=== PATIENT | female | born 1950 | race Caucasian/White ===

== ENCOUNTER 2017-08-03 06:40 | Observation (INO) | payer MEDICARE, OTHER ==
[2017-07-30 14:07] VITALS: BMI 38.0
[~2017-08-03 06:40] MED LIST: ALPRAZolam 0.25 MG TAB PO PRN; ASPIRIN 325 MG TAB PO ONE; ATORVASTATIN 80 MG TAB PO ONE; SODIUM CHLORIDE 0.9% 1,000 ML in EMPTY BAG 1 BAG IV ONE
[2017-08-03 10:45] LABS: Basophils % (A) 0 %; Eosinophils # (A) 0.3 k/uL (0-0.7); Eosinophils % (A) 5 %; HGB 13.5 gm/dL (11.4-16.0); Hypochromasia Slight; Lymphocytes # (A) 1.4 k/uL (1.0-4.8); Lymphocytes % (A) 23 %; MCH 26.5 pg (25.0-35.0); MCHC 30.7 g/dL (31.0-37.0); MCV 86.2 fL (80.0-100.0); Mean Platelet Volume 7.1; Monocytes # (A) 0.4 k/uL (0-1.0); Monocytes % (A) 7 %; Neutrophils # (A) 3.7 k/uL (1.3-7.7); Neutrophils % (A) 62 %; Platelet Count 283 k/uL (150-450); RDW 14.9 % (11.5-15.5); WBC 5.9 k/uL (3.8-10.6)
[2017-08-03 10:53] LABS: Calcium 9.2 mg/dL (8.4-10.2); Potassium 4.7 mmol/L (3.5-5.1)
[2017-08-03] MEDS ORDERED: IV FLUID CONTINUATION 500 ML IV ONE (11:54)
[2017-08-03] MEDS ORDERED: HEPARIN SODIUM 1,000 UN/ML (10ML VL) ONE (12:05)
[2017-08-03] MEDS ORDERED: MIDAZOLAM 2 MG/2 ML VIAL ONE (12:05)
[2017-08-03] MEDS ORDERED: VERAPAMIL 2.5 MG/ML 2 ML AMP ONE (12:05)
[2017-08-03] MEDS ORDERED: MIDAZOLAM 2 MG/2 ML VIAL IV ONE (12:20)
[2017-08-03] MEDS ORDERED: LIDOCAINE 1% INJ 10MG/ML (20 ML MDV) SQ ONE (12:30)
[2017-08-03] MEDS ORDERED: VERAPAMIL SYRINGE (5 MG/10 ML) INTRAARTER ONE (12:33)
[2017-08-03] MEDS ORDERED: HEPARIN SODIUM 1,000 UN/ML (10ML VL) IV ONE (12:35)
[2017-08-03] MEDS ORDERED: NITROGLYCERIN 1000MCG/10ML SYRINGE INTRACORON ONE (12:39)
[2017-08-03] MEDS ORDERED: IOPAMIDOL-370 125ML BTL INJ ONE (12:44)
[2017-08-03] MEDS ORDERED: RX INFO: IV CONTRAST WAS GIVEN 1 EACH MISC MISCELLANE PRN (12:48)
[2017-08-03] MEDS ORDERED: SODIUM CHLORIDE 0.9% 1,000 ML IV SCH (13:00)
[2017-08-03 13:16] VITALS: TEMP 97.7
[2017-08-03 14:26] VITALS: RESP 18
[2017-08-03 14:59] VITALS: BP 125/70; PULSE 61
--- NOTE | 2017-08-03 16:27 | CC ---
CARDIAC CATHETERIZATION REPORT DATE OF SERVICE: August 03, 2017 PERFORMING PHYSICIAN: Lalit Luther MD, department store manager. PROCEDURE PERFORMED: 1. Selective right and left coronary angiogram. 2. Left heart catheterization. INDICATION: This is a pleasant 66-year-old female patient who is known to have coronary artery disease and prior stenting of the RCA in the setting of acute inferior ST- elevation myocardial infarction complicated by cardiogenic shock, was experiencing lately intermittent episodes of chest discomfort described as a burning in the chest. The discomfort was concerning for angina. She at that time where she underwent her RCA stenting, she was found to have intermediate to severe disease involving the LAD. APPROACH: Right radial artery. COMPLICATIONS: None. LEVEL OF SEDATION: Moderate with sedation length of 15 minutes. PROCEDURE DESCRIPTION: After obtaining an informed consent, the patient was brought to the cardiac cathode builder. The right radial artery was cannulated using micropuncture technique and a micropuncture wire passed easily. Then I placed a 6-H[place] sheath in the right radial artery. After that, I did selective right and left coronary angiogram using JR4 and JL3.5 catheters. Left heart catheterization was performed using the JR4, which flipped into the LV across the aortic valve. Then I did pullback across aortic valve. The procedure was completed without any complication. SELECTIVE CORONARY ANGIOGRAM: 1. The RCA is a large caliber vessel and it is a dominant vessel. The RCA in the proximal to mid portion is stented and the stent is patent. The distal RCA is angiographically normal and bifurcates into PDA and PLV branches. Both are angiographically normal. 2. The left main is angiographically normal. It bifurcates into left circumflex and left anterior descending artery. 3. The left circumflex is a large caliber vessel and it is a nondominant vessel. The proximal circ has mild disease only. The mid left circumflex is normal and gives rise into a large OM branch which appeared to be angiographically normal and bifurcates into 2 subbranches both are angiographically normal. The circumflex after that continues in the AV groove as a medium caliber vessel. 4. Left anterior descending coronary artery: The proximal LAD appeared to have disease in the range of 40% The LAD as a matter of fact opened up after I gave the patient nitroglycerin IC. The mid LAD is tortuous. It does seems to be angiographically normal. The LAD after that tortuous area appeared to have a tubular lesion in the range of 60%. The LAD becomes a medium caliber vessel at that segment. At least the findings are the same as before. The LAD in the proximal to midportion gives rise into a medium-sized diagonal branch which has a tight lesion reach the ostial of the LAD. HEMODYNAMICS: The left ventricular end-diastolic pressure appeared to be in the range of 12 mmHg and no gradient was identified across the aortic valve. CONCLUSION: 1. Intermittent episodes of chest burning concerning for angina. 2. Patent stent in the RCA. 3. Normal left main coronary artery. 4. Mild disease involving the left circumflex coronary system. 5. Intermediate disease involving the proximal LAD and intermediate to severe disease involving the mid and mid to distal LAD. Findings are unchanged compared to before. Severe disease involving the first diagonal branch which is small to medium caliber vessel and disease reached the ostium by the takeoff from the LAD. 6. Finding overall are unchanged compared to before. 7. The LAD opened up nicely with IC nitroglycerins. POSTPROCEDURE MANAGEMENT: 1. Maximize medical treatment. 2. Add oral nitrate to current medical treatment. 3. Follow up with the patient. MMODL / IJN: [id number] /
[2017-08-03 17:22] LABS: Glucose,Whole Blood 166 mg/dL (75-99)
== END 2017-08-03 19:15 | disposition home or self-care (01) ==
LOC: CATHCVL 06:40 → 3OBS 06:47
PROVIDERS: ADMIT Internal Medicine Interventional Cardiology; ATTEND Internal Medicine Interventional Cardiology
DX: R07.89 Other chest pain (principal); R12 Heartburn; I25.10 Atherosclerotic heart disease of native coronary artery without angina pectoris; I25.2 Old myocardial infarction; Z95.5 Presence of coronary angioplasty implant and graft; I10 Essential (primary) hypertension; E11.9 Type 2 diabetes mellitus without complications; E78.5 Hyperlipidemia, unspecified; Z79.82 Long term (current) use of aspirin; Z79.899 Other long term (current) drug therapy; Z79.4 Long term (current) use of insulin; Z79.84 Long term (current) use of oral hypoglycemic drugs; Z79.890 Hormone replacement therapy; Z79.01 Long term (current) use of anticoagulants
CPT/HCPCS: 93458; 80048; 85025; G0378; C1894; J2250; J2001; J1644; Q9967